=== PATIENT | female | born 1970 | race Caucasian/White ===

== ENCOUNTER 2018-09-14 09:54 | Day surgery (SDC) | payer OTHER ==
[~2018-09-14 09:54] MED LIST: 0.9 % SODIUM CHLORIDE 100 ML IV.SOLN IV ONE; BUPIV. HCL 0.25% (2.5MG/ML)/EPI. (1:200,000) PF 30 ML VIAL IJ ONE; ENOXAPARIN SODIUM 40 MG/0.4 ML DISP.SYRIN SQ ONE; FAMOTIDINE 20 MG/2 ML VIAL IV ONE; HYDROmorphone HCL/PF 1 MG/ML VIAL ONE; LACTATED RINGERS 1,000 ML IV.SOLN IV ONE; LIDOCAINE HCL 1% PF 300MG/30ML VIAL ONE; LIDOCAINE HCL 2% PF 100MG/5ML VIAL IJ ONE; MIDAZOLAM HCL 2 MG/2 ML VIAL ONE; PHENYLEPHRINE HCL 10 MG/1 ML ONE; PROMETHAZINE HCL 25 MG/ML VIAL ONE; PROPOFOL 200 MG/20 ML VIAL IV ONE; ROCURONIUM BROMIDE 10 MG/ML 5ML VIAL ONE; SCOPOLAMINE HYDROBROMIDE 1.5MG/72HR PATCH TD ONE; SEVOFLURANE 250 ML LIQUID IH ONE; SODIUM CHLORIDE IRRIG SOLUTION 3,000 ML IRRIG.SOLN IR ONE; SUGAMMADEX SODIUM 200 MG/2 ML VIAL IV ONE; SUGAMMADEX SODIUM 500 MG/5 ML VIAL IV ONE; ceFAZolin SODIUM 1 GM VIAL ONE
[2018-09-14] MEDS ORDERED: PROMETHAZINE HCL 25 MG/ML VIAL ONE (12:58)
[2018-09-14] MEDS ORDERED: HYDROmorphone HCL/PF 1 MG/ML VIAL ONE (13:35)
--- NOTE | 2018-09-18 13:45 | Operative Note ---
PREOPERATIVE DIAGNOSIS: 1. Morbid obesity. 2. Hypertension. 3. Type 2 diabetes. POSTOPERATIVE DIAGNOSIS: 1. Morbid obesity. 2. Hypertension. 3. Type 2 diabetes. 4. Upper abdominal adhesions. PROCEDURES PERFORMED: 1. Laparoscopic lysis of adhesions. 2. Laparoscopic vertical sleeve gastrectomy. 3. Upper gastrointestinal endoscopy. SURGEON: Eder Broderick M.D. INDICATIONS FOR PROCEDURE: Ms. Hyacinth Enamorado is a 48-year-old female who presented with features of morbid obesity. She was noted to have a weight of 311 pounds with a BMI of 57.9 with the above-listed comorbidities. The patient was advised laparoscopic vertical sleeve gastrectomy and possible hiatal hernia repair. The patient showed understanding and agreed to proceed. DESCRIPTION OF PROCEDURE: After explaining to the patient in detail and informed consent was obtained, the patient was identified in the preoperative holding area. The patient was transferred to the operating room and was placed in supine position. Sequential compressive devices were placed for DVT prophylaxis. Preoperative antibiotics were given. After induction of anesthesia, the abdomen was prepped and draped in a sterile fashion. Through a left upper quadrant 1-cm incision, and using Optiview technique, the peritoneal cavity was entered and pneumoperitoneum was created. Thereafter, under direct vision, another 5-mm trocar was placed in the left midabdomen and another 15-mm trocar was placed in the right midabdomen. Through a 1-cm incision in the right subcostal region, another 5-mm trocar was placed. Through a 1-cm incision in the epigastrium, a Anna retractor was introduced and the left lobe of the liver was retracted. On initial inspection, the patient was noted to have no evidence of hiatal hernia. I took down the gastroepiploic vessels using a LigaSure. This was continued superiorly. The short gastric vessels were taken down. The gastrophrenic ligament was divided and the Angle of His was mobilized. The posterior attachments of the stomach on the pancreas were released. Distally, the gastroepiploic vessels were taken down up to about 4 cm proximal to the pylorus. At this point, a #38 Amharic Hurst Bougie was introduced into the stomach and was placed along the lesser curve. The stomach was then divided in a vertical fashion with multiple Endo GONZALO Covidien Black Load Staplers. The first firing was directed outwards towards the greater curvature. Subsequent firings were directed towards the Angle of His to create a loose sleeve around the #38 Amharic bougie. The bougie was then removed and an upper GI endoscopy was performed at this point. The scope was introduced into the esophagus and was gradually advanced into the stomach. The GE junction appeared normal. The sleeve size appeared normal. No evidence of any active bleeding was noted. The stomach was insufflated with air and irrigation of fluid along the staple line revealed no evidence of air leak. The stomach was then suctioned out and the scope was removed. Absolute hemostasis was ensured. Thorough saline irrigation was given. The Anna retractor was removed. Approximately 10 mL of a lidocaine- Marcaine mix was instilled under the left hemidiaphragm. The sleeve gastrectomy specimen was removed. The abdomen was then deflated. The incisions were closed with 4-0 Monocryl. Dermabond was applied. Approximately 10 mL of a lidocaine- Marcaine mix was injected into all the incisions. The patient was awakened from anesthesia and was transferred to the recovery room in stable condition. At the beginning of the surgery, I had to take down adhesions in the upper abdomen from her previous surgery. For this, I had to place an additional port in the left lower quadrant to facilitate this. The adhesiolysis was performed for about 15 to 20 minutes. Previous mesh repair of the hernia was also noted. ESTIMATED BLOOD LOSS: Approximately 10 mL. CONDITION OF THE PATIENT: Stable. FLUIDS GIVEN: Per Anesthesia note. SPECIMEN(S) SENT: Sleeve gastrectomy specimen. COMPLICATIONS: None. ANESTHESIA: General. Eder Broderick M.D. GLORIA/alfred (Please copy [facility] provider when applicable) Job #[id number] STORMY
== END 2018-09-14 13:59 | disposition other institution (70) ==
LOC: OPSURG 09:54
PROVIDERS: ATTEND Surgery
DX: E66.01 Morbid (severe) obesity due to excess calories (principal); E11.9 Type 2 diabetes mellitus without complications; G47.30 Sleep apnea, unspecified; I10 Essential (primary) hypertension; Z68.43 Body mass index [BMI] 50.0-59.9, adult
CPT/HCPCS: 43775; 88305; A9270; J0690; J1170; J1650; J2001; J2250; J2370; J2550; J2704; J7120

== ENCOUNTER 2018-09-14 14:00 | Inpatient (IN) | payer OTHER ==
[2018-09-14] MEDS ORDERED: 0.9 % SODIUM CHLORIDE 1,000 ML IV ONE (14:09)
[2018-09-14] MEDS ORDERED: KETOROLAC TROMETHAMINE 30 MG/1ML VIAL IV PRN (14:14)
[2018-09-14] MEDS ORDERED: IPRATROPIUM/ALBUTEROL SULFATE 3 ML AMPUL.NEB NEB PRN (14:14)
[2018-09-14] MEDS ORDERED: HYDROcodone-ACETAMIN 7.5-325/15ML SOLN UD CUP PO PRN (14:14)
[2018-09-14 14:27] VITALS: BMI 57.4
--- NOTE | 2018-09-14 14:36 | History and Physical Report ---
History of Present Illnes - History of Present Illness Reason for Visit: S/P LSG History of Present Illness: Patient is a 48-year-old female who has tried multiple diets and exercise programs with no success. She has always struggled with her weight. She has tried many diet plans, diet pills, and walking and has not been able to keep it off. She noticed increased difficulty after having children. She tried the gastric band in 2003 but had complications and had it removed in 2009. Patient a nd surgeon decided to proceed with gastric sleeve procedure. Procedure went well- patient will be admitted and monitored s/p surgical intervention. Patient has been on a liquid diet prior to surgery so she is a risk of dehydration s/p surgery. She is still very lethargic s/p surgery. She will be admitted for IV hydration to help hydrate patient until she is able to tolerate a sufficient oral intake, will treat pain with IV medication until patient is able to tolerate oral meds, IV antiemetics to help reduce episodes of nausea and/or vomiting. Patient will be monitored closely using telemetry due to hypertension (was running elevated blood pressures in recovery)- Will monitor blood sugars closely and place on SSI and watch for symptoms of hypoglycemia- treating d/t A1C > 7. 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 Gastrointestinal: GERD Psych: Anxiety, Depression Musculoskeletal: Chronic low back pain (DDD ) Endocrine: Diabetes, obesity Grav: 4 Para: 4 - Past Surgical History Past Surgical History: Appendectomy, Cholecystectomy, Other (Colectomy, ventral hernia repair, gastric band in 2003 and removed in 2009), Tubal Ligation - Past Family History Mother Family History: Hyperlipidemia, Other (obesity) Father Family History: DM, Hypertension - Past Social History Smoke: No Alcohol: None Drugs: None Lives: With Family Domestic Violence: Negative - Health Maintenance Health Maintenance: Cholesterol, Pap Smear, Mammogram Influenza Vaccine: Current for this Influenza Season Pneumonia Vaccine: No Resuscitation Status: Resusciation Status Resuscitation Status Full Code Review of Systems - Review of Systems Constitutional: negative: Fever, Chills Eyes: negative: conjunctivae inflammation, eyelid inflammation ENT: negative: Ear Pain, Mouth Pain, Throat Pain Respiratory: SOB with Excertion Cardiovascular: negative: Chest Pain, Edema Gastrointestinal: Nausea, Vomiting (dry heaves), Abdominal Pain Genitourinary: negative: Dysuria Musculoskeletal: Back Pain Skin: Other (incision site x 6) Neurological: negative: Weakness - Medications/Allergies Allergies/Adverse Reactions: Allergies Allergy/AdvReac Type Severity Reaction Status Date / Time adhesive Allergy Verified 09/14/18 14:14 hydromorphone [From Dilaudid] Allergy Verified 09/14/18 14:13 Home Medications: Home Medications Gabapentin [Gralise] 600 mg PO DAILY 09/14/18 Glimepiride [Amaryl] 2 mg PO 0730 09/14/18 Lisinopril 20 mg PO DAILY 09/14/18 Metformin HCl [Metformin HCl ER] 1,000 mg PO DAILY 09/14/18 Pravastatin Sodium [Pravachol] 20 mg PO HS 09/14/18 Pregabalin [Lyrica] 225 mg PO BID 09/14/18 Promethazine HCl [Phenergan] 25 - 50 mg PO DAILY 09/14/18 Ranitidine HCl 150 mg PO BID 09/14/18 Sitagliptin Phosphate [Januvia] 100 mg PO HS 09/14/18 Tizanidine HCl [Zanaflex] 4 - 8 mg PO TID PRN 09/14/18 hydrOXYzine HCL [Atarax] 25 mg PO DAILY 09/14/18 oxyCODONE HCL/ACETAMINOPHEN [Percocet 10-325] 1 tab PO Q6H PRN 09/14/18 Current Inpatient Medications: Current Inpatient Medications Hydrocodone Bitart/Acetaminophen (Hycet 7.5-325mg/15 Ml Ud Cup) 15 ml PO Q4 PRN PRN Reason: PAIN 5-7 Stop: 09/18/18 14:13 Albuterol/Ipratropium (Duoneb) 3 ml NEB Q4 PRN PRN Reason: Wheezing Cefazolin Sodium/Dextrose (Ancef 1 Gm/50 Ml-Dextrose) 1 gm IV Q8H [facility] Stop: 09/15/18 04:01 Enoxaparin Sodium (Lovenox) 40 mg SQ DAILY [facility] Stop: 09/29/18 08:59 Famotidine (Pepcid) 20 mg IVP BID [facility] Stop: 09/18/18 20:59 Sodium Chloride (Normal Saline) 1,000 mls @ 150 mls/hr IV Q8H [facility] Promethazine HCl 25 mg/ Sodium (Chloride) 51 mls @ 200 mls/hr IV Q6 PRN PRN Reason: Nausea / Vomiting Stop: 09/18/18 14:13 Insulin Human Regular (Humulin R) 0 unit CHEMD [facility]; Protocol Ketorolac Tromethamine (Toradol) 30 mg IV Q6H PRN PRN Reason: For Mild Pain Stop: 09/18/18 14:13 Lisinopril (Prinivil) 20 mg PO DAILY [facility] Miscellaneous (Chem Sticks) [facility] Morphine Sulfate () 4 mg IVP Q2 PRN PRN Reason: PAIN 8-10 Stop: 09/15/18 14:13 Ondansetron HCl (Zofran) 4 mg IVP Q6H PRN PRN Reason: Nausea / Vomiting Stop: 09/18/18 14:13 Exam - Exam Vital Signs: Vital Signs (72 hours) 09/14/18 09/14/18 14:21 14:25 Temperature 97 F L 97 F L Pulse Rate [ 79 79 Left] Respiratory 18 18 Rate Blood Pressure 161/100 161/100 [Left Arm] O2 Sat by Pulse 91 L 91 L Oximetry General: Other (Still lethargic s/p surgery), Morbidly Obese HEENT: PERRLA, Other (dry mucous membranes) Neck: Normal Range of Motion Carotids: No bruit Lungs: Clear to auscultation, Normal air movement Cardiovascular: Normal S1, Normal S2 Peripheral Edema: None Peripheral Pulses: 2+ Abdomen: Soft, Other (tenderness), Decreased Bowel Sounds Integumentary: Warm, Dry, Pale, Other (incision sites x 6 dry/intact) Extremities: Normal pulses Neurological: Sensation intact, Generalized Weakness Psych/Mental Status: Mood NL Assessment/Plan - Assessment/Plan (1) Status post gastric surgery Status: Acute Current Visit: Yes Plan: Plan to admit for IV hydration, IV pain meds, and IV antiemetics. Lovenox and SCDs to help prevent DVTs, IS and frequent ambulation will be implemented. Start ice chips and advance diet as tolerated once nausea and vomiting is controlled. (2) Morbid obesity due to excess calories Status: Acute Current Visit: Yes Plan: Will start with ice chips and advance to clear liquids once N/V controlled (3) Hypertension Status: Acute Current Visit: Yes Qualifiers: Hypertension type: essential hypertension Qualified Code(s): I10 - E ssential (primary) hypertension Assessment: Blood pressures were running greater than 140 systolic in post op Plan: Will monitor blood pressure- if blood pressure > 140 systolic this afternoon around 15:00 will start losartan and will order to restart in the a.m. 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 use Diabetes mellitus complication status: with hyperglycemia Qualified Code(s): E11.65 - Type 2 diabetes mellitus with hyperglycemia Assessment: A1C on preop labs > 7 Plan: Will implement sliding scale insulin and monitor patient closely for hypoglycemia due to significant decrease in calories s/p surgery (5) Anxiety and depression Status: Acute Current Visit: Yes Plan: Will monitor and implement medication once able to tolerate PO (6) Chronic low back pain Status: Acute Current Visit: Yes Plan: Will have patient up and ambulating; may use K-pad (7) Nausea and vomiting Status: Acute Current Visit: Yes Plan: Patient is to receive IV antiemetics until N/V controlled- will administer IV fluids until patient can tolerate PO VTE Assessment - RISK FACTOR SCORE VTE RISK FACTOR SCORES: AGE 40-60 YEARS, OBESITY, MAJOR SURGERY/ANESTHESIA TIME > 1 HOUR - RISK VTE HIGH RISK: SCORE OF 3-4 (RISK PROXIMAL DVT 4-8%) PROPHYLAXIS NEEDED (Lovenox daily, SCDs while in bed, frequent ambulation, Incentive spirometry)
[2018-09-14] MEDS: 0.9 % SODIUM CHLORIDE 1,000 ML IV SCH ×2 (14:56→21:19)
[2018-09-14] MEDS ORDERED: hydrALAZINE HCL 20 MG/1 ML IVP ONE (15:06)
[2018-09-14] MEDS: ONDANSETRON HCL/PF 4 MG/ 2ML VIAL IVP PRN (16:30)
[2018-09-14] MEDS: INSULIN REGULAR, HUMAN 100 UNIT/ML 10ML VIAL SQ SCH ×2 (17:39→21:16)
[2018-09-14] MEDS: MORPHINE SULFATE 4 MG/ML VIAL IVP PRN (19:25)
[2018-09-14] MEDS ORDERED: 0.9 % SODIUM CHLORIDE 50 ML IV ONE (19:30)
[2018-09-14] MEDS ORDERED: PROMETHAZINE HCL 25 MG/ML VIAL ONE (19:30)
[2018-09-14] MEDS: PROMETHAZINE HCL 25 MG in 0.9 % SODIUM CHLORIDE 50 ML IV PRN (19:34)
[2018-09-14] MEDS: FAMOTIDINE 20 MG/2 ML VIAL IVP SCH (21:09)
[2018-09-14] MEDS: ceFAZolin SODIUM 1 GM/50 ML PIGGYBACK IV SCH (21:11)
[2018-09-15] MEDS: ONDANSETRON HCL/PF 4 MG/ 2ML VIAL IVP PRN ×4 (01:03→19:13)
[2018-09-15] MEDS: MORPHINE SULFATE 4 MG/ML VIAL IVP PRN ×3 (01:03→09:07)
[2018-09-15] MEDS ORDERED: 0.9 % SODIUM CHLORIDE 50 ML IV ONE ×2 (03:04→23:43)
[2018-09-15] MEDS ORDERED: PROMETHAZINE HCL 25 MG/ML VIAL ONE ×2 (03:04→23:43)
[2018-09-15] MEDS: PROMETHAZINE HCL 25 MG in 0.9 % SODIUM CHLORIDE 50 ML IV PRN ×3 (03:06→23:50)
[2018-09-15] MEDS: 0.9 % SODIUM CHLORIDE 1,000 ML IV SCH ×2 (04:35→18:04)
[2018-09-15] MEDS: ceFAZolin SODIUM 1 GM/50 ML PIGGYBACK IV SCH (05:04)
[2018-09-15 06:27] LABS: eGFR (Non-African) > 60
[2018-09-15 06:28] LABS: BASOPHILS % 0.3 % (0.0-1.5)
[2018-09-15] MEDS: INSULIN REGULAR, HUMAN 100 UNIT/ML 10ML VIAL SQ SCH ×4 (08:31→21:26)
[2018-09-15] MEDS: LISINOPRIL 10 MG TABLET PO SCH (08:40)
[2018-09-15] MEDS: ENOXAPARIN SODIUM 40 MG/0.4 ML DISP.SYRIN SQ SCH (08:40)
[2018-09-15] MEDS: FAMOTIDINE 20 MG/2 ML VIAL IVP SCH ×2 (08:48→20:36)
[2018-09-15] MEDS ORDERED: ENOXAPARIN SODIUM 40 MG/0.4 ML DISP.SYRIN SQ SCH (09:00)
--- NOTE | 2018-09-15 17:13 | Inpatient Progress Note ---
Subjective - Required Recertification Statement I anticipate X number of days because-include discharge plan: 1 - Review of Systems Events since last encounter: Patient states that she had a bad night. She had some nausea and dry heaves all night- she was encouraged to sip her drinks and wait in between drinks- she states that her pain is tolerable and pain medications are working. She has been up walking in the [place], wearing SCDs while in bed, and using Incentive Spirometry- incision sites are dry and intact x6. She is not as motivated to get up but she is trying- she has been using the incentive spirometer. Will continue with IV fluids d/t frequent nausea and vomiting. Patient was given one dose of IV hydralazine for HTN. She has been on oxygen at 3 Liters and has been sating around 91%. General: Fatigue. Denies: Chills HEENT: Denies: Head Aches, Dysphasia Pulmonary: Denies: Dyspnea Cardiovascular: Denies: Chest Pain, Edema Gastrointestinal: Nausea, Vomiting, Abdominal Pain Genitourinary: Denies: Dysuria Musculoskeletal: Back Pain Neurological: Denies: Weakness Objective - Exam Vitals and I&O: Vital Signs Temp 96.8 F L 09/15/18 14:00 Pulse 69 09/15/18 14:00 Resp 20 09/15/18 14:00 BP 140/90 09/15/18 14:00 Pulse Ox 93 09/15/18 14:00 Intake & Output 09/14/18 09/15/18 09/15/18 23:59 11:59 23:59 Intake Total 90 60 970 Output Total 500 700 Balance -410 -640 970 Weight 138 kg Intake: IV 850 Left Hand 850 Oral 90 60 120 Output: Urine 500 700 Other: Voiding Method Toilet Toilet # Voids 2 2 # Bowel Movements 0 0 General: Alert, Oriented to Person, Oriented to Place, Oriented to Time, Cooperative, Moderate distress, Morbidly Obese HEENT: PERRLA, Nose Mucous membr. moist/Marueno, Other (dry mucous membranes) Neck: Supple, +2 carotid pulse wo bruit Lungs: Clear to auscultation, Normal air movement Cardiovascular: Regular rate, Normal S1, Normal S2 Abdomen: Normal bowel sounds, Soft, Other (ternderness) Extremities: No edema, Normal pulses, No tenderness/swelling Skin: Warm, Pale, Other (incision sites x 6 ) Neurological: Normal gait, Normal speech, Strength Equal Bilat, Sensation intact Psych/Mental Status: Mental status NL, Mood NL - Results Results: Laboratory Results WBC 15.20 K/ul (4.00-12.00) H 09/15/18 04:30 RBC 4.13 M/ul (3.90-5.20) 09/15/18 04:30 Hgb 11.4 g/dL (11.5-16.0) L 09/15/18 04:30 Hct 34.7 % (34.5-46.5) 09/15/18 04:30 MCV 84.0 fl (80.0-100.0) 09/15/18 04:30 MCH 27.7 pg (28.0-34.0) L 09/15/18 04:30 MCHC 33.0 g/dL (30.0-36.0) 09/15/18 04:30 RDW 15.6 % (11.3-14.3) H 09/15/18 04:30 Plt Count 238 K/mm3 (130-400) 09/15/18 04:30 Neut % (Auto) 85.5 % (39.0-79.0) H 09/15/18 04:30 Lymph % (Auto) 9.6 % (16.0-50.0) L 09/15/18 04:30 [place] % (Auto) 3.7 % (0.0-11.0) 09/15/18 04:30 Eos % (Auto) 0.9 % (0.0-6.8) 09/15/18 04:30 Baso % (Auto) 0.3 % (0.0-1.5) 09/15/18 04:30 Neut # (Auto) 13.0 # k/uL (1.4-7.7) H 09/15/18 04:30 Lymph # (Auto) 1.5 # k/uL (0.6-4.0) 09/15/18 04:30 [place] # (Auto) 0.6 # k/uL (0.0-0.9) 09/15/18 04:30 Eos # (Auto) 0.1 # k/uL (0.0-0.6) 09/15/18 04:30 Baso # (Auto) 0.1 # k/uL (0.0-0.5) 09/15/18 04:30 Sodium 132 mmol/L (137-145) L 09/15/18 04:30 Potassium 4.5 mmol/L (3.5-5.1) 09/15/18 04:30 Chloride 103 mmol/L (98-107) 09/15/18 04:30 Carbon Dioxide 23 mmol/L (22-30) 09/15/18 04:30 BUN 11 mg/dL (7-17) 09/15/18 04:30 Creatinine 0.49 mg/dL (0.52-1.04) L 09/15/18 04:30 Estimated Creat Clear 367 09/15/18 04:30 Est GFR ( Amer) > 60 (60-) 09/15/18 04:30 Est GFR (Non-Af Amer) > 60 (60-) 09/15/18 04:30 Glucose 154 mg/dL (74-106) H 09/15/18 04:30 Calcium 8.3 mg/dL (8.4-10.2) L 09/15/18 04:30 Total Bilirubin 0.3 mg/dL (0.2-1.3) 09/15/18 04:30 AST 41 U/L (15-46) 09/15/18 04:30 ALT 25 U/L (0-35) 09/15/18 04:30 Alkaline Phosphatase 89 U/L (38-126) 09/15/18 04:30 Total Protein 7.9 g/dL (6.3-8.2) 09/15/18 04:30 Albumin 3.7 g/dL (3.5-5.0) 09/15/18 04:30 Assessment/Plan - Assessment/Plan (1) Status post gastric surgery Status: Acute Current Visit: Yes Assessment: Patient having nausea and dry heaves- poor motivation d/t discomfort Plan: Plan to admit for IV hydration, IV pain meds, and IV antiemetics. Will hold Lovenox and Toradol d/t adhesions. SCDs to help prevent DVTs, IS and frequent ambulation will be implemented. Start ice chips and advance diet as tolerated once nausea and vomiting is controlled. 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 Diabetes mellitus complication status: with hyperglycemia Qualified Code(s): E11.65 - Type 2 diabetes mellitus with hyperglycemia Assessment: Blood sugars still slightly elevated- > 150s Plan: Will continue with sliding scale insulin (5) Anxiety and depression Status: Acute Current Visit: Yes Assessment: Stable Plan: Will continue with home medications once patient is able to tolerate po (6) Chronic low back pain Status: Acute Current Visit: Yes Assessment: Stable Plan: May implement K-pad as needed (7) Nausea and vomiting Status: Acute Current Visit: Yes Assessment: Pt continues to have some occasional dry heaves Plan: Will continue with IV antiemetic and implement mylanta PRN
[2018-09-15] MEDS ORDERED: MAG HYDROX/ALUMINUM HYD/SIMETH 30 ML UDC PO PRN (17:46)
[2018-09-16] MEDS: 0.9 % SODIUM CHLORIDE 1,000 ML IV SCH (00:47)
[2018-09-16] MEDS: ONDANSETRON HCL/PF 4 MG/ 2ML VIAL IVP PRN (01:37)
[2018-09-16] MEDS ORDERED: 0.9 % SODIUM CHLORIDE 50 ML IV ONE ×2 (06:41→08:51)
[2018-09-16] MEDS ORDERED: PROMETHAZINE HCL 25 MG/ML VIAL ONE (06:41)
[2018-09-16] MEDS: PROMETHAZINE HCL 25 MG in 0.9 % SODIUM CHLORIDE 50 ML IV PRN (06:45)
[2018-09-16 06:58] LABS: eGFR (Non-African) > 60
[2018-09-16 07:02] LABS: PLT EST. EST. AGREES W/PLT CT; SEGMENTED NEUTROPHILS % 84 % (39-79)
--- NOTE | 2018-09-16 07:55 | Discharge Summary ---
Discharge Summary - Discharge [facility] Admission Date: 09/14/18 Discharge Date: 09/16/18 Discharge To: Home History of Present Illness: Patient is a 48-year-old female who has tried multiple diets and exercise programs with no success. She has always struggled with her weight. She has tried many diet plans, diet pills, and walking and has not been able to keep it off. She noticed increased difficulty after having children. She tried the gastric band in 2003 but had complications and had it removed in 2009. Patient and surgeon decided to proceed with gastric sleeve procedure. Procedure went well- patient was admitted and monitored s/p surgical intervention. Patient had been on a liquid diet prior to surgery so she was at risk of dehydration s/p surgery. She was very lethargic s/p surgery. She was admitted for IV hydration to help hydrate patient until she was able to tolerate a sufficient oral intake, treated with IV pain medication until patient was able to tolerate oral meds, IV antiemetics to help reduce episodes of nausea and/or vomiting. Patient was monitored closely using telemetry due to hypertension (was running elevated blood pressures in recovery)- blood sugars were monitored closely and placed on SSI and watched for symptoms of hypoglycemia- treating d/t A1C > 7. (Held Toradol and Lovenox d/t adhesions) Condition at Discharge: Stable Home Medications: Ambulatory Orders Medication Instructions Recorded Gabapentin [Gralise] 600 mg PO DAILY 09/14/18 Glimepiride [Amaryl] 2 mg PO 0730 09/14/18 Lisinopril 20 mg PO DAILY 09/14/18 Metformin HCl [Metformin HCl ER] 1,000 mg PO DAILY 09/14/18 Pravastatin Sodium [Pravachol] 20 mg PO HS 09/14/18 Pregabalin [Lyrica] 225 mg PO BID 09/14/18 Promethazine HCl [Phenergan] 25 - 50 mg PO DAILY 09/14/18 Ranitidine HCl 150 mg PO BID 09/14/18 Sitagliptin Phosphate [Januvia] 100 mg PO HS 09/14/18 Tizanidine HCl [Zanaflex] 4 - 8 mg PO TID PRN 09/14/18 hydrOXYzine HCL [Atarax] 25 mg PO DAILY 09/14/18 oxyCODONE HCL/ACETAMINOPHEN 1 tab PO Q6H PRN 09/14/18 [Percocet 10-325] Consultations this Visit: None Procedures this Visit: Other (S/P LSG) Allergies/Adverse Reactions: Allergies Allergy/AdvReac Type Severity Reaction Status Date / Time adhesive Allergy Verified 09/14/18 14:14 hydromorphone [From Dilaudid] Allergy Verified 09/14/18 14:13 Patient Problems: Current Active Problems Problem Status Onset Anxiety and depression Acute Chronic low back pain Acute Hypertension Acute Morbid obesity due to excess calories Acute Nausea and vomiting Acute Status post gastric surgery Acute Type 2 diabetes mellitus Acute Discharge Summary: Patient is a 48-year-old female that underwent the gastric sleeve procedure and has done well. She has been very cooperative with her care by ambulating frequently, using her incentive spirometer, and wearing her SCDs while in bed- She required a lot of encouragement to get and stay motivated to ambulate and use IS. She has been having dry heaves- kept encouraging patient to sip- she was drinking to quickly. She is having minimal discomfort at this time- she has is passing gas and belching. She is aware of discharge instructions and what she can and cannot do post surgical- she is aware of the strict diet she must follow to decrease discomfort and have success after procedure. However, patient keeps saying "If I could just eat something". Patient was reeducated on the i mportance of advancing diet as instructed- reminded her that stretching the stomach quickly after surgery can lead to a leak and emergent abdominal surgery- she voiced understanding. She has family support and family will be taking her home- medications written by surgeon given to patient. Hospital Course: Patient received IV pain medications, antiemetics, and IVF and was transitioned to oral. She has been up ambulating and using incentive spirometer. Needed encouragement d/t lack of motivation. - Final Diagnosis (1) Status post gastric surgery Problems: Incision without redness or drainage, positive bowel sounds, minimal discomfort, belching and flatus, no extremity pain or edema, dry heaves d/t drinking quickly Right or Left: Right (2) Morbid obesity due to excess calories Problems: Continue with bariatric sleeve diet- clear liquids today and start full liquids tomorrow t Right or Left: Right (3) Hypertension Problems: Stable- monitor blood pressures daily- keep log and take to follow up appointment- continue on blood pressure medications Right or Left: Right (4) Type 2 diabetes mellitus Problems: Blood sugars coming down- continue on home medications as instructed by PCP s/p surgery Keep a log of blood sugars daily and take to follow up appointment Right or Left: Right (5) Anxiety and depression Problems: Stable Right or Left: Right (6) Chronic low back pain Problems: Stable Right or Left: Right (7) Nausea and vomiting Problems: Patient has dry heaves when she drinks to fast- or eats a popsicle to fast. Re- educated on taking sip- no gulping or chugging Right or Left: Right
[2018-09-16] MEDS: ENOXAPARIN SODIUM 40 MG/0.4 ML DISP.SYRIN SQ SCH (09:07)
[2018-09-16] MEDS: LISINOPRIL 10 MG TABLET PO SCH (09:07)
[2018-09-16] MEDS: FAMOTIDINE 20 MG/2 ML VIAL IVP SCH (09:09)
[2018-09-16 10:11] VITALS: BP 165/81
== END 2018-09-16 09:50 | disposition home or self-care (01) | DRG 621 ==
LOC: SOUTH 14:00
PROVIDERS: ADMIT Nurse Practitioner Family; ATTEND Nurse Practitioner Family
PROC: 0DB64Z3 Excision of Stomach, Percutaneous Endoscopic Approach, Vertical (ICD-10-PCS; principal; 2018-09-14)
PROC: 0DN64ZZ Release Stomach, Percutaneous Endoscopic Approach (ICD-10-PCS; 2018-09-14)
DX: E66.01 Morbid (severe) obesity due to excess calories (principal); E11.42 Type 2 diabetes mellitus with diabetic polyneuropathy; I10 Essential (primary) hypertension; K21.9 Gastro-esophageal reflux disease without esophagitis; M19.90 Unspecified osteoarthritis, unspecified site; G89.29 Other chronic pain; K66.0 Peritoneal adhesions (postprocedural) (postinfection); K76.0 Fatty (change of) liver, not elsewhere classified; R11.2 Nausea with vomiting, unspecified; E11.65 Type 2 diabetes mellitus with hyperglycemia; M51.36 Other intervertebral disc degeneration, lumbar region; F41.9 Anxiety disorder, unspecified; E78.5 Hyperlipidemia, unspecified; F32.9 Major depressive disorder, single episode, unspecified; Z88.5 Allergy status to narcotic agent; Z91.048 Other nonmedicinal substance allergy status; Z79.899 Other long term (current) drug therapy; Z79.84 Long term (current) use of oral hypoglycemic drugs; Z98.51 Tubal ligation status; Z83.3 Family history of diabetes mellitus; Z82.49 Family history of ischemic heart disease and other diseases of the circulatory system; Z82.5 Family history of asthma and other chronic lower respiratory diseases; Z68.43 Body mass index [BMI] 50.0-59.9, adult; Z90.49 Acquired absence of other specified parts of digestive tract
CPT/HCPCS: 80053; 85025; 97116; 97161; 97165; J0360; J1650; J1815; J2270; J2405; J2550; J7030; 99221